=== PATIENT | female | born 1965 | race Caucasian/White ===

== ENCOUNTER 2020-02-24 23:29 | Emergency (ER) | payer BC ==
[2020-02-24 23:49] VITALS: BP 139/78
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
[2020-02-25] MEDS ORDERED: HYDROCODONE/ACETAMINOPHEN 10-325 MG TABLET PO ONE (00:52)
[2020-02-25] MEDS ORDERED: ONDANSETRON 4 MG TAB.RAPDIS PO ONE (00:52)
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
== END 2020-02-25 02:46 | disposition left against medical advice (07) ==
LOC: ER 23:29
DX: S52.91XA Unspecified fracture of right forearm, initial encounter for closed fracture (principal); V49.9XXA Car occupant (driver) (passenger) injured in unspecified traffic accident, initial encounter; Z88.6 Allergy status to analgesic agent; Z88.5 Allergy status to narcotic agent; Z53.20 Procedure and treatment not carried out because of patient's decision for unspecified reasons
CPT/HCPCS: 99281; 73090; 73110; S0119